=== PATIENT | male | born 1990 | race Caucasian/White ===

== ENCOUNTER 2023-10-21 22:12 | Emergency (ER) | payer OTHER, SELFPAY ==
[2023-10-21 22:18] VITALS: BP 151/95
--- NOTE | 2023-10-21 22:40 | ED.GENMED ---
History of Present Illness
General
Chief Complaint: Eye Problems
Source: patient
Time Seen by Provider: 10/21/23 22:35
Travel History
Have you had any contact with someone who has COVID-19?: No
Do you have any symptoms of coronavirus? Fever > 100 degrees, chills, cough, shortness of breath, sore throat, loss of taste or smell, muscle aches, or headache?: No
History of Present Illness
History of Present Illness:
33-year-old male with past medical history of hypertension presenting the emergency department for evaluation of bilateral upper eyelid styes that were diagnosed couple weeks ago at [facility], started on cool compresses and antibiotic drops
but states he has not had much relief. Does note that upon arriving to the emergency department the left upper lid did seem to have discharge. He states that the areas are uncomfortable especially when blinking. He denies any contact lens use.
States vision does seem a little bit blurred. Denies getting any substances in his eyes. No other concerns.
Past History
Past History
ED Past Medical History: HTN
ED Past Surgical History: None
Social History
Tobacco: Non-smoker
Alcohol: Occasional
Drug: None
Living: with family
Review of Systems
Review of Systems
All Other Systems: ROS reviewed and negative except as documented in HPI and ROS
Phy Exam
Physical Exam
Physical Exam:
GENERAL: Alert , in no apparent distress
EYE: Bilateral upper lid internal styes, left greater than right. There is mild discharge surrounding the stye in the left upper lid. Conjunctiva clear, pupils 3 mm
Visual acuity: right eye and left eye
Head: Normocephalic atraumatic
NECK: Supple,
ENT: mmm.
LUNGS: no acute respiratory distress
NEUROLOGICAL: Alert and oriented
SKIN: Warm and dry, skin intact.
MUSCULOSKELETAL: well perfused.
PSYCH: Normal and appropriate interaction.
Scores
Heart Failure Risk
Heart Failure Risk Score: Not Applicable
Heart Score for Chest Pain Patients
STEMI patient?: Not applicable
Withdrawal Assessment of Alcohol
Withdrawal Assessment Completed?: Not applicable
Course
Vital Signs
Initial and Last Documented VS:
Initial Vital Signs
Temp Pulse Resp BP Pulse Ox
98.3 F 89 16 151/95 99
10/21/23 22:18 10/21/23 22:18 10/21/23 22:18 10/21/23 22:18 10/21/23 22:18
Last Documented Vital Signs
Temp Pulse Resp BP Pulse Ox
98.3 F 89 16 151/95 99
10/21/23 22:18 10/21/23 22:18 10/21/23 22:18 10/21/23 22:18 10/21/23 22:18
MDM/Problems Addressed
Differential Diagnosis Includes:
Stye, chalazion, conjunctivitis, foreign body
MDM/Problems Addressed:
33-year-old male present emergency department for evaluation of suspected stye that has been ongoing for couple of weeks. Patient seen at different hospital and was started on antibiotic drops and warm compresses. He states he has not had much
relief with this. Given persistent nature of symptoms I do feel patient needs to be seen by ophthalmology for likely procedure to remove the stye. Explained to patient that unfortunately there is no other treatment options in the emergency
department at this time and he is stable for discharge. Will provide him with information for on-call ophthalmology team to contact in the morning for an appointment.
*Pulse Oximetry
Patient hypoxic: no
*Critical Care Note
Total Time (30-74mins, 75-104mins- exclusive of procedures): Not Applicable
ED Attending Note
-
Portions of this chart may have been created with voice recognition software.� Occasional wrong word or��sound alike� substitutions may have occurred due to the inherent limitations of voice recognition software.
Discharge Plan
Departure
Patient Disposition: Home (Routine Discharge)
Date of Disposition: 10/21/23
Time of Disposition: 22:41
Patient with high blood pressure during this ER visit?: Yes
Discharge Problem:
Hordeolum internum left upper eyelid, Hordeolum internum of right upper eyelid
Instructions: Montse (hordeolum)
Referrals:
Yasmine Mejia MD [Active] - (Ophthalmology - Please call for appointment)
Interventions
Interventions:
*Risk Screen - Suicide Last Done: 10/21/23 22:18
*General Assessment Last Done: 10/21/23 22:18
*Neglect/Abuse Screening Last Done: 10/21/23 22:18
*ED COVID-19 Vaccine History Last Done: 10/21/23 22:18
Discharge Date and Time
Print Language: IRISH
[2023-10-21 22:56] VITALS: BP 151/95
== END 2023-10-21 22:57 | disposition home or self-care (01) ==
LOC: EMR 22:12
PROVIDERS: EMERGENCY PHYSICIAN Emergency Medicine; FAMILY PHYSICIAN Nurse Practitioner Family
DX: H00.021 Hordeolum internum right upper eyelid (principal); H00.024 Hordeolum internum left upper eyelid; I10 Essential (primary) hypertension
CPT/HCPCS: 99283

== ENCOUNTER 2024-03-24 19:57 | Emergency (ER) | payer OTHER, SELFPAY ==
[2024-03-24 20:03] VITALS: BP 151/92
[2024-03-24 20:48] LABS: ALT (SGPT) 24 U/L (0-50); AST (SGOT) 25 U/L (17-59); Albumin 4.9 g/dl (3.5-5.0); Alkaline Phosphatase 49 U/L (38-126); Blood Urea Nitrogen 11 mg/dl (9-20); Carbon Dioxide 23 mmol/L (22-30); Chloride 107 mmol/L (98-107); Glucose 96 mg/dl (70-99); Potassium 4.2 mmol/L (3.5-5.1); Sodium 143 mmol/L (135-145); Total Bilirubin 0.7 mg/dl (0.2-1.3); Total Protein 7.8 g/dl (6.3-8.2); Urine Albumin Trace (Neg - Trace); Urine Bilirubin Negative (Negative); Urine Character Clear (Clear); Urine Color Yellow; Urine Glucose Negative (Negative); Urine Ketone Trace (Negative); Urine Leukocyte Negative (Negative); Urine Nitrite Negative (Negative); Urine Occult Blood Negative (Negative); Urine Specific Gravity 1.025 (<1.030); Urine Urobilinogen 1+ (Neg - 1+); eGFR > 60.00
[2024-03-24 20:49] LABS: COVID-19 Antigen Negative (Negative)
[2024-03-24 20:53] LABS: Alcohol None Detected
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
[2024-03-24 21:34] LABS: Hematocrit 45.5 % (39.0-52.0); Hemoglobin 16.9 g/dL (13.0-18.0); Mean Corp Hgb Conc. 37.1 g/dL (33.0-37.0); Mean Corpuscular Hgb 33.2 pg (27.0-31.0); Mean Corpuscular Volume 89.4 fL (80.0-94.0); Red Blood Cell Count 5.1 10^6/uL (4.70-6.10); Red Cell Dist. Width 12.8 % (11.5-14.5); White Blood Cell Count 8.1 10^3/uL (4.8-10.8)
[2024-03-24 21:35] LABS: % Basophils 0.6 % (0-2); % Eosinophils 0.7 % (0-6); % Immature Granulocytes 0.2 % (0-0.5); % Lymphocytes 24.8 % (20.5-51.1); % Monocytes 8.3 % (1.7-9.3); % Neutrophils 65.4 % (42.2-75.2); Absolute Basophils 0.1 10^3/uL (0-0.2); Absolute Eosinophils 0.1 10^3/uL (0-0.7); Absolute Monocytes 0.7 10^3/uL (0.1-0.6); Absolute Neutrophils 5.3 10^3/uL (1.4-6.5); Mean Platelet Volume 10.8 fL (7.4-10.4); Nucleated Red Blood Cells % 0 % (-); Platelet Count 275 10^3/uL (130-400)
[2024-03-24] MEDS: XANAX 0.5 MG PO (22:01)
[2024-03-24 22:05] VITALS: BP 126/81
== END 2024-03-24 23:45 | disposition home or self-care (01) ==
LOC: EMR 19:57
PROVIDERS: Emergency Medicine; EMERGENCY PHYSICIAN Emergency Medicine
DX: S06.0X0A Concussion without loss of consciousness, initial encounter (principal); W22.8XXA Striking against or struck by other objects, initial encounter; Y93.89 Activity, other specified; Y92.89 Other specified places as the place of occurrence of the external cause; Y99.0 Civilian activity done for income or pay; F32.A Depression, unspecified; R53.1 Weakness; Z11.52 Encounter for screening for COVID-19; F41.9 Anxiety disorder, unspecified; I10 Essential (primary) hypertension
CPT/HCPCS: 99284; 70450; 80053; 81003; 82077; 85025; 87811